=== PATIENT | male | born 1995 | race Caucasian/White ===

== ENCOUNTER 2020-05-28 23:53 | Emergency (ER) | payer SELFPAY ==
[~2020-05-28] VITALS: Ht 190.5 cm; Wt 90.7 kg
--- NOTE | 2020-05-29 00:47 | Emergency Department Note ---
History of Present Illnes History of Present Illness Chief Complaint: Seizure History of Present Illness This is a 24 year old male PRESENTS TO ED WITH REPORT OF WITNESSED SEIZURE AT HOME, FAMILY STATES SEIZURE "LASTED ABOUT 20 SECONDS" AND THAT PT WAS AAOX3 FOLLOWING SEIZURE; PT REPORTS CONSUMPTION OF ALCOHOL TONIGHT; RESP ARE EVEN AND UNLABORED, O2 SAT RA 100%; BRUISING NOTED TO BUE, BLE, CHEST; PT DENIES ANY ALTERCATION; . 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 Any updates have been documented here. Past Medical History Recent Fever: No Clinical Suspicion of Infectio: No New/Unexplained Change in Ment: No Social History Smoking Cessation: Current some day smoker Alcohol Use: Social Any Illegal Drug Use: No Family History Family history of heart diseas: No Review of Systems Review of Systems Constitutional: Reports no symptoms EENTM: Reports no symptoms Cardiovascular: Reports no symptoms Respiratory: Reports no symptoms Gastrointestinal: Reports no symptoms Genitourinary: Reports no symptoms Musculoskeletal: Reports no symptoms Integumentary: Reports no symptoms Neurological: Reports as per HPI Psychological: Reports no symptoms Endocrine: Reports no symptoms Hematological/Lymphatic: Reports no symptoms Physical Exam Related Data Allergies: Coded Allergies: Bleach (Sodium Hypochlorite) (Verified Allergy, Intermediate, 05/29/20) potato (Verified Allergy, Intermediate, 05/29/20) Triage Vital Signs Vital Signs Date Time Temp Pulse Resp B/P (MAP) Pulse Ox O2 Delivery O2 Flow Rate FiO2 05/29/20 00:18 98.9 72 16 137/84 99 Room Air Vital signs reviewed: Yes Physical Exam CONSTITUTIONAL Constitutional: Present well-developed, Present well-nourished HENT HENT: Present normocephalic, Present atraumatic, Present oropharynx clear/moist, Present nose normal HENT L/R: Present left ext ear normal, Present right ext ear normal EYES Eyes: Reports PERRL, Reports conjunctivae normal NECK Neck: Present ROM normal PULMONARY Pulmonary: Present effort normal, Present breath sounds normal CARDIOVASCULAR Cardiovascular: Present regular rhythm, Present heart sounds normal, Present c apillary refill normal, Present normal rate GASTROINTESTINAL Abdominal: Present soft, Present nontender, Present bowel sounds normal GENITOURINARY Genitourinary: Present exam deferred SKIN Skin: Present warm, Present dry MUSCULOSKELETAL Musculoskeletal: Present ROM normal, Present other (BRUISES TO BOTH ARMS AND LEGS) NEUROLOGICAL Neurological: Present alert, Present oriented x 3, Present no gross motor or sensory deficits PSYCHOLOGICAL Psychological: Present mood/affect normal, Present judgement normal Results Laboratory Lab results reviewed: Yes Imaging Imaging results reviewed: Yes Impressions Procedure: CT/CT BRAIN WO Exam Date: 05/29/20 Exam Time: 49 REPORT STATUS: Signed EXAMINATION: Head CT without contrast. HISTORY:Possible seizure. COMPARISON:None. TECHNIQUE: Multidetector axial images were obtained from the foramen magnum to the vertex without contrast. The images were reconstructed using brain and bone algorithms. Thin section brain images were reformatted into coronal and sagittal planes. Dose modulation, iterative reconstruction, and/or weight based adjustment of the mA/kV was utilized to reduce the radiation dose to as low as reasonably achievable. Intravenous contrast: None IMAGE QUALITY: Acceptable. FINDINGS: Skull/scalp: No lytic or blastic. lesions. No surgical changes. Parenchyma: No abnormal density. No acute hemorrhage, mass or acute major vascular territorial infarct. Arteries: No density suggestive of thrombosis. Dural sinuses: No abnormal density suggestive of thrombosis. Ventricles: No hydrocephalus or displacement. Incidental cavum septum pellucidum and cavum vergae, normal anatomic variant. Extra-axial spaces: No abnormal density. Brain volume: Normal for age. Craniocervical junction: No mass, Chiari malformation, or basilar invagination. Sella: No mass. Paranasal/mastoid sinuses: Imaged portions unremarkable. IMPRESSION: No intracranial abnormality. Signed by: Dr. Ciera Briggs M.D. 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 PT HAS BEEN DRINKING ETOH CBC, CMP, ETOH, UDS, UA, CT BRAIN ORDERED TO EVAL FOR INTRACRANIAL ABNORMALITY, DRUG USE, ETOH INTOXICATION, ELECTROLYTE ABNORMALITY Reassessment Reassessment time: 01:31 Reassessment PT IS STILL AWAKE, ALERT AND ORIENTED TIMES 3 Assessment & Plan Final Impression: (1) Alcohol intoxication Depart Disposition: HOME, SELF-CARE Last Vital Signs Date Time Temp Pulse Resp B/P (MAP) Pulse Ox O2 Delivery O2 Flow Rate FiO2 05/29/20 00:18 98.9 72 16 137/84 99 Room Air KYUNG EDMONDS MD May 29, 2020 00:47
[2020-05-29 00:49] LABS: BASOPHILS % 0.4 % (0.0-1.0); EOSINOPHILS % 0.4 % (0.0-6.0); HEMATOCRIT 44.2 % (38.2-49.6); HEMOGLOBIN 14.9 g/dL (14.0-18.0); LYMPHOCYTES # (AUTO) 1.8 (1.0-3.2); LYMPHOCYTES % 17.3 % (18.0-39.1); MEAN CORPUSCULAR HEMOGLOBIN 31.6 pg (28-32); MEAN CORPUSCULAR HGB CONC 33.7 g/dL (31-35); MEAN CORPUSCULAR VOLUME 93.8 fL (81-99); MONOCYTES % 9.2 % (4.4-11.3); NEUTROPHILS # (AUTO) 7.5 (2.1-6.9); NEUTROPHILS % 72.3 % (38.7-80.0); PLATELET COUNT 170 x10e3/uL (140-360); RED BLOOD COUNT 4.71 x10e6/uL (4.3-5.7); RED CELL DISTRIBUTION WIDTH 13.2 % (11.7-14.4)
[2020-05-29 01:13] LABS: ALANINE AMINOTRANSFERASE 34 IU/L (0-55); ALBUMIN 4.1 g/dL (3.5-5.0); ALBUMIN/GLOBULIN RATIO 1.8 (0.8-2.0); ALKALINE PHOSPHATASE 71 IU/L (40-150); ANION GAP 14.5 mmol/L (8-16); BLOOD UREA NITROGEN 7 mg/dL (7-26); BUN/CREATININE RATIO 8 (6-25); CALCIUM 8.8 mg/dL (8.4-10.2); CARBON DIOXIDE 24 mmol/L (22-29); CHLORIDE 108 mmol/L (98-107); CREATININE, SERUM 0.84 mg/dL (0.72-1.25); EST GLOMERULAR FILTRATION RATE > 60 ML/MIN (60-); GLUCOSE 94 mg/dL (74-118); POTASSIUM 3.5 mmol/L (3.5-5.1); SODIUM 143 mmol/L (136-145)
--- NOTE | 2020-05-29 01:17 | Diagnostic Imaging Report ---
EXAMINATION: Head CT without contrast. HISTORY:Possible seizure. COMPARISON:None. TECHNIQUE: Multidetector axial images were obtained from the foramen magnum to the vertex without contrast. The images were reconstructed using brain and bone algorithms. Thin section brain images were reformatted into coronal and sagittal planes. Dose modulation, iterative reconstruction, and/or weight based adjustment of the mA/kV was utilized to reduce the radiation dose to as low as reasonably achievable. Intravenous contrast: None IMAGE QUALITY: Acceptable. FINDINGS: Skull/scalp: No lytic or blastic. lesions. No surgical changes. Parenchyma: No abnormal density. No acute hemorrhage, mass or acute major vascular territorial infarct. Arteries: No density suggestive of thrombosis. Dural sinuses: No abnormal density suggestive of thrombosis. Ventricles: No hydrocephalus or displacement. Incidental cavum septum pellucidum and cavum vergae, normal anatomic variant. Extra-axial spaces: No abnormal density. Brain volume: Normal for age. Craniocervical junction: No mass, Chiari malformation, or basilar invagination. Sella: No mass. Paranasal/mastoid sinuses: Imaged portions unremarkable. IMPRESSION: No intracranial abnormality. Signed by: Dr. Ciera Carbajal M.D. on 05/29/2020 1:14 AM
[2020-05-29 01:43] VITALS: BP 130/88
== END 2020-05-29 01:56 | disposition home or self-care (01) ==
LOC: ER 05-29 01:15
DX: F10.129 Alcohol abuse with intoxication, unspecified (principal); F17.210 Nicotine dependence, cigarettes, uncomplicated
CPT/HCPCS: 36415; 70450; 80053; 80320; 85025; 93005; 99283